=== PATIENT | male | born 1980 | race Caucasian/White ===

== ENCOUNTER 2022-07-04 17:34 | Inpatient (IN) | payer OTHER ==
[~2022-07-04] VITALS: Ht 195.6 cm; Wt 96.2 kg
[2022-07-04 21:58] LABS: Urine Bacteria NONE SEEN /hpf (None Seen); Urine Blood Negative /uL (Negative); Urine Specific Gravity 1.022 (1.001-1.035); Urine WBC <1 /hpf (0 - 3)
[2022-07-04 22:00] LABS: Basophils # (auto) 0 10 ^3/uL (0-0.2); Basophils % (auto) 0.3 % (0.0-2.0); Eosinophils # (auto) 0 10 ^3/uL (0-0.8); Eosinophils % (auto) 0.2 % (0.0-7.0); Hematocrit 44.6 % (41.0-53.0); Hemoglobin 14.5 g/dL (13.5-17.5); Lymphocytes # (auto) 1.3 10 ^3/uL (0.4-5.4); Mean Corpuscular Hemoglobin 28.8 pg (28.0-32.0); Mean Corpuscular Hgb Conc. 32.6 g/dL (32.0-36.0); Mean Corpuscular Volume 88.4 fL (80.0-100.0); Monocytes # (auto) 0.6 10 ^3/uL (0-1.3); Monocytes % (auto) 8.2 % (0.0-12.0); Neutrophils # (auto) 5.9 10 ^3/uL (1.6-8.6); Neutrophils % (auto) 75.3 % (37.0-80.0); Red Blood Cells 5.04 10^6/uL (4.5-5.90); Red Cell Distribution Width 13.1 % (11.8-14.3); White Blood Cell 7.8 10^3/uL (4.4-10.8)
[2022-07-04 22:16] LABS: Calcium 8.8 mg/dL (8.5-10.1)
[2022-07-04 22:23] LABS: Albumin 3.8 g/dL (3.4-5.0); BUN/Creatinine Ratio 9.7; Bilirubin, Total 0.5 mg/dL (0.2-1.0); Total Protein 7.6 g/dL (6.4-8.2)
[2022-07-04 23:10] VITALS: BP 127/82
[2022-07-05 06:04] VITALS: BP 136/81
[2022-07-05 07:30] LABS: INR 1.06 (0.9-1.15); Partial Thromboplastin Time 31.2 sec (24.6-33.4)
[2022-07-05 09:00] VITALS: BP 121/73
[2022-07-05] MEDS: ENOXAPARIN SOD 40 MG/0.4 ML SYRINGE SC SCH ×2 (10:00→11:43)
[2022-07-05 13:00] VITALS: BP 129/75
[2022-07-05] MEDS: cefTRIAXone 1GM/50ML D5W 50 ML IV SCH (15:10)
[2022-07-05 17:00] VITALS: BP 111/67
[2022-07-05 22:00] VITALS: BP 122/75
[2022-07-06 05:00] VITALS: BP 120/72
[2022-07-06 08:54] VITALS: BP 114/69
[2022-07-06] MEDS ORDERED: LIDOCAINE 1%-Mpf/Epinephrine 1:200,000 ONE (09:17)
[2022-07-06] MEDS ORDERED: fentaNYL CITRATE 100 MCG/2 ML VL ONE ×2 (09:41→11:45)
[2022-07-06] MEDS ORDERED: MIDAZOLAM HCL 2MG/2ML 2ml VIAL (1mg/ml) ONE (09:41)
[2022-07-06] MEDS: ENOXAPARIN SOD 40 MG/0.4 ML SYRINGE SC SCH (10:00)
[2022-07-06] MEDS ORDERED: PROPOFOL 10 MG/ML 20 ML IV ONE ×2 (10:02)
[2022-07-06] MEDS ORDERED: ceFAZolin 1GM/50ML 100 ML IV ONE (10:11)
[2022-07-06] MEDS ORDERED: NEOMYCIN-BACITRACIN-POLYM 15GM TOP OINT TOP ONE (10:13)
[2022-07-06] MEDS ORDERED: ceFAZolin 1GM/50ML 50 ML IV ONE (10:15)
[2022-07-06] MEDS ORDERED: ONDANSETRON HCL 4 MG/2 ML VIAL ONE (11:45)
[2022-07-06] MEDS ORDERED: LIDOCAINE 2% (LOCAL ANESTH.) PF 5ml SDV ONE (11:46)
[2022-07-06] MEDS ORDERED: HYDROmorphone HCL 2 MG/ML VL/or syr ONE (11:51)
[2022-07-06] MEDS: HYDROmorphone HCL 2 MG/ML VL/or syr IV PRN ×4 (12:00→12:31)
[2022-07-06] MEDS ORDERED: ONDANSETRON HCL 4 MG/2 ML VIAL IV PRN (12:00)
[2022-07-06 13:13] VITALS: BP 118/72
[2022-07-06] MEDS: HYDROcodone-ACET 10/325MG TAB PO PRN ×2 (14:25→21:30)
[2022-07-06] MEDS: cefTRIAXone 1GM/50ML D5W 50 ML IV SCH (14:26)
[2022-07-06 17:38] VITALS: BP 117/71
[2022-07-06 22:00] VITALS: BP 127/77
[2022-07-07] MEDS: HYDROcodone-ACET 10/325MG TAB PO PRN ×3 (04:00→18:45)
[2022-07-07 05:00] VITALS: BP 117/81
[2022-07-07] MEDS ORDERED: GADOTERATE MEG 10 MMOL/20ml INJ (0.5MMOL/ml) IV ONE (08:41)
[2022-07-07 09:00] VITALS: BP 126/93
[2022-07-07] MEDS: cefTRIAXone 1GM/50ML D5W 50 ML IV SCH (09:09)
[2022-07-07] MEDS: ENOXAPARIN SOD 40 MG/0.4 ML SYRINGE SC SCH (10:00)
[2022-07-07 13:00] VITALS: BP 116/84
[2022-07-07] MEDS: MORPHINE SULFATE 4 MG/ML SYR/VIAL IV PRN ×2 (16:57→22:52)
[2022-07-07 17:00] VITALS: BP 153/69
[2022-07-07 20:00] VITALS: BP 115/65
[2022-07-07 22:00] VITALS: BP 115/65
[2022-07-07] MEDS: TEMAZEPAM 15 MG CAP PO PRN (22:51)
[2022-07-08 05:00] VITALS: BP 112/72
[2022-07-08 07:30] VITALS: BP 128/77
[2022-07-08 09:00] VITALS: BP 128/77
[2022-07-08] MEDS: cefTRIAXone 1GM/50ML D5W 50 ML IV SCH (09:30)
[2022-07-08] MEDS: ENOXAPARIN SOD 40 MG/0.4 ML SYRINGE SC SCH (10:00)
[2022-07-08 10:30] LABS: Basophils # (auto) 0 10 ^3/uL (0-0.2); Basophils % (auto) 0.2 % (0.0-2.0); Eosinophils # (auto) 0 10 ^3/uL (0-0.8); Eosinophils % (auto) 0.1 % (0.0-7.0); Hematocrit 44.3 % (41.0-53.0); Hemoglobin 14.2 g/dL (13.5-17.5); Lymphocytes # (auto) 0.9 10 ^3/uL (0.4-5.4); Lymphocytes % (auto) 10.8 % (10.0-50.0); Mean Corpuscular Hemoglobin 28.6 pg (28.0-32.0); Mean Corpuscular Hgb Conc. 32.1 g/dL (32.0-36.0); Mean Corpuscular Volume 89.2 fL (80.0-100.0); Monocytes # (auto) 0.8 10 ^3/uL (0-1.3); Monocytes % (auto) 9.1 % (0.0-12.0); Neutrophils # (auto) 6.9 10 ^3/uL (1.6-8.6); Neutrophils % (auto) 79.8 % (37.0-80.0); Red Blood Cells 4.97 10^6/uL (4.5-5.90); Red Cell Distribution Width 13.3 % (11.8-14.3); White Blood Cell 8.6 10^3/uL (4.4-10.8)
[2022-07-08 10:37] LABS: Albumin 3.3 g/dL (3.4-5.0); Calcium 8.8 mg/dL (8.5-10.1); Potassium 4.2 mmol/L (3.5-5.1)
[2022-07-08 10:40] LABS: BUN/Creatinine Ratio 9.7; Bilirubin, Total 0.4 mg/dL (0.2-1.0); Total Protein 6.7 g/dL (6.4-8.2)
[2022-07-08] MEDS: MORPHINE SULFATE 4 MG/ML SYR/VIAL IV PRN ×2 (10:48→19:19)
[2022-07-08 13:00] VITALS: BP 118/84
[2022-07-08] MEDS ORDERED: IOHEXOL 300 MG/ML 100ML BOTTLE IJ ONE (15:27)
[2022-07-08 17:07] VITALS: BP 129/86
[2022-07-08 22:00] VITALS: BP 121/78
[2022-07-08] MEDS: TEMAZEPAM 15 MG CAP PO PRN (23:18)
[2022-07-09] MEDS: MORPHINE SULFATE 4 MG/ML SYR/VIAL IV PRN ×4 (00:04→20:26)
[2022-07-09 04:34] VITALS: BP 122/65
[2022-07-09] MEDS: cefTRIAXone 1GM/50ML D5W 50 ML IV SCH (08:54)
[2022-07-09 09:00] VITALS: BP 127/85
[2022-07-09 13:02] VITALS: BP 111/75
[2022-07-09] MEDS ORDERED: LACTULOSE 20Gm/30ML SOLN PO ONE (13:15)
[2022-07-09 17:00] VITALS: BP 114/81
[2022-07-09] MEDS: HYDROcodone-ACET 10/325MG TAB PO PRN (17:46)
[2022-07-09 22:00] VITALS: BP 114/81
[2022-07-10] MEDS: MORPHINE SULFATE 4 MG/ML SYR/VIAL IV PRN ×4 (00:37→21:56)
[2022-07-10] MEDS: DOCUSATE SOD 100 MG CAP PO PRN (04:50)
[2022-07-10 05:00] VITALS: BP 94/61
[2022-07-10 06:13] LABS: Potassium 4.3 mmol/L (3.5-5.1)
[2022-07-10 06:20] LABS: Albumin 3.3 g/dL (3.4-5.0); BUN/Creatinine Ratio 14.5; Bilirubin, Total 0.4 mg/dL (0.2-1.0); Calcium 8.8 mg/dL (8.5-10.1); Total Protein 7.1 g/dL (6.4-8.2)
[2022-07-10 08:15] VITALS: BP 114/77
[2022-07-10 09:00] VITALS: BP 114/73
[2022-07-10] MEDS: cefTRIAXone 1GM/50ML D5W 50 ML IV SCH (09:53)
[2022-07-10] MEDS: ENOXAPARIN SOD 40 MG/0.4 ML SYRINGE SC SCH (09:54)
[2022-07-10] MEDS ORDERED: GADOTERATE MEG 10 MMOL/20ml INJ (0.5MMOL/ml) IV ONE (09:58)
[2022-07-10 13:00] VITALS: BP 119/77
[2022-07-10 17:00] VITALS: BP 111/73
[2022-07-10 23:04] VITALS: BP 123/79
[2022-07-11] MEDS: TEMAZEPAM 15 MG CAP PO PRN (00:47)
[2022-07-11 05:40] VITALS: BP 94/48
[2022-07-11 09:00] VITALS: BP 112/79
[2022-07-11] MEDS: cefTRIAXone 1GM/50ML D5W 50 ML IV SCH (09:22)
[2022-07-11] MEDS: ENOXAPARIN SOD 40 MG/0.4 ML SYRINGE SC SCH (09:23)
[2022-07-11] MEDS: MORPHINE SULFATE 4 MG/ML SYR/VIAL IV PRN ×3 (09:23→20:20)
[2022-07-11 13:00] VITALS: BP 123/76
[2022-07-11 17:10] VITALS: BP 142/93
[2022-07-11] MEDS: DOCUSATE SOD 100 MG CAP PO PRN (20:34)
[2022-07-11 21:52] VITALS: BP 120/77
[2022-07-12] MEDS: MORPHINE SULFATE 4 MG/ML SYR/VIAL IV PRN ×2 (00:39→10:23)
[2022-07-12 05:00] VITALS: BP 114/68
[2022-07-12 09:00] VITALS: BP 127/82
[2022-07-12] MEDS: ENOXAPARIN SOD 40 MG/0.4 ML SYRINGE SC SCH (10:00)
[2022-07-12] MEDS: cefTRIAXone 1GM/50ML D5W 50 ML IV SCH (10:22)
[2022-07-12 13:00] VITALS: BP 121/73
[2022-07-12] MEDS: HYDROcodone-ACET 10/325MG TAB PO PRN (14:56)
[2022-07-12 17:00] VITALS: BP 123/78
== END 2022-07-12 17:28 | DRG 712 ==
LOC: EEVIPCON 17:34 → ER 17:34 → OVERFLOW 20:49 → EAST 23:01
PROVIDERS: ADMIT Internal Medicine; ATTEND Internal Medicine
PROC: 0VTB0ZZ Resection of Left Testis, Open Approach (ICD-10-PCS; principal; 2022-07-06 10:23)
DX: C62.92 Malignant neoplasm of left testis, unspecified whether descended or undescended (principal); Z80.3 Family history of malignant neoplasm of breast; Z20.822 Contact with and (suspected) exposure to COVID-19; K76.9 Liver disease, unspecified
CPT/HCPCS: 36415; 70470; 70553; 71045; 71275; 74177; 74183; 76870; 80053; 81001; 82105; 83615; 84702; 85025; 85610; 85730; 87081; G0378; J0690; J0696; J2001; J2250; J2405; J2704

== ENCOUNTER → 2024-04-15 | Outpatient (CLI) | payer OTHER | END | disposition home or self-care (01) | LOC: XYW 08:57 | DX: Z08 Encounter for follow-up examination after completed treatment for malignant neoplasm (principal); R59.0 Localized enlarged lymph nodes; C62.92 Malignant neoplasm of left testis, unspecified whether descended or undescended; Z90.89 Acquired absence of other organs; R60.0 Localized edema | CPT/HCPCS: 74176 ==